=== PATIENT | male | born 1935 | race Caucasian/White ===

== ENCOUNTER 2024-04-28 10:46 | Outpatient (AMB) | payer MEDICARE, SELFPAY ==
--- NOTE | 2024-04-28 10:50 | A.OFFPC_ITS ---
Vital Signs 04/28/24 10:55 Height 5 ft 7 in Weight 168 lb 8 oz BMI 26.4 BP 128/64 Blood Pressure Location Lt brachial Position Sitting Respiration 16 Pulse 76 Pulse Source Pulse Oximeter Temp 97.4 F Temp Source Oral Pulse Oximetry (%) 99 Oxygen Delivery Method Room Air Intake Visit Reasons: NPV Intake Note: patient here for new patient visit Media Promoter Required: No Allergies No Known Allergies Allergy (Verified 04/28/24 10:53) Tobacco use date assessed: 04/28/24 Fall risk assessment: No Falls in past year Last assessed Fall Risk: 04/28/24 Dental Screening Dental Screen Date: 04/28/24 Did you have a dental visit in the last 12 months?: Yes Did you have a dental problem in the last 6 months where you did not have access to dental care?: No Was dental information given to patient?: Patient has dentist HPI HPI Comments History of Present Illness Details This is an 88 year old male presenting to [facility]. His last PCP was at [facility]. He can't prounce her name. He says it's been a year since he was seen. He denies chronic medical conditions aside from arthritis. He doesn't take any medications. He lives with his daughter, Genie, and his , Medina. He is a retired. He used to work for the [employer]. He has arthritis in his hands and knees. He takes Ibuprofen and Tylenol as needed. Patient endorses pressure in his head for at least a year. He has it to some degree every day. It affects his concentration. He feels it diffusely in his head. It is a 10/10 at worst. Denies trauma. He endorses difficulty remembering recent events and details for the past year. He endorses dizziness for the past year. He denies falls. He denies vision changes and eye pain. Denies seizures and blackouts. Denies tremors, paresthesias, weakness, numbness. He says he had a swallow test last week at [facility], but I don't see anything in the records. He is unsure who ordered it, but he says he's been having difficulty with mucus in this throat affecting his ability to swallow. He's has a scaly brown skin lesion on the right forearm for the past year. He requests a referral to dermatology. MMSE-only missed spelling WORLD backwards and the date today and name of the clinic, but he is a new patient. ROS: Constitutional: No unexplained weight loss, fever, chills, fatigue or night sweats. Eyes: No vision changes, blurry vision, double vision, eye pain, eye redness, eye discharge. ENT: He has bilateral hearing aids and chronic tinnitus. Denies sneezing, congestion, runny nose or sore throat. Respiratory: No shortness of breath or cough. Cardiovascular: No chest pain, chest pressure or chest discomfort. No palpitations or pedal edema. Gastrointestinal: No anorexia, nausea, vomiting or diarrhea. No abdominal pain or blood in stool. Genitourinary: No dysuria, hematuria, urinary frequency. Neurologic: No headache, dizziness, syncope, unilateral weakness, ataxia, numbness or tingling in the extremities. Musculoskeletal: see HPI Hematologic/Lymphatics: No bleeding or bruising. No painful lymph nodes. Skin: No rash or itching. Endocrine: No cold or heat intolerance. No polyuria or polydipsia. Psychiatric: No depression or anxiety. No SI/HI. Physical exam: Constitutional: Alert, in no distress. Eyes: Pupils are equal, round and reactive to light. Extraocular muscles intact. Ear, Nose and Throat: Canals clear. TMs normal. Normal nasal mucosa. No nasal discharge. No oral lesions. Neck: Supple, Full range of motion. No lymphadenopathy. No palpable thyroid masses. Respiratory: Clear to auscultation. Cardiovascular: S1 S2 regular. No murmurs. No carotid bruits. Gastrointestinal: Abdomen soft, non-tender, non-distended. Normal bowel sounds. No palpable masses. Neurologic:?Alert and oriented x 3, no focal deficits observed, CN 2-12 intact, [id number] normal, sensation and strength equal and symmetric, reflexes equal and symmetric.? Normal gait.? No pronator drift.? Negative Romberg. Speech is not slurred. He answers questions appropriately. Skin: large, scaly, brown, raised lesion on the right forearm Musculoskeletal: No gross deformities. Normal range of motion. Extremities: Warm and well perfused. No clubbing, cyanosis or edema. 3+ peripheral pulses bilaterally. Psychiatric: He appears nervous. [facility] Medical History (Updated 04/28/24 @ 12:43 by AZRA Cabello) Abnormal EKG Neoplasm of skin Pressure in head Memory impairment Dizziness Surgical History (Updated 04/28/24 @ 11:28 by AZRA Cabello) History of bilateral cataract extraction History of appendectomy History of lumbar surgery Family History (Updated 04/28/24 @ 11:29 by AZRA Cabello) Father Heart disease Social History Housing: House Patient Tobacco Use Status: Never used Tobacco e-Cigarette/Vaping Use: Never Used service: Yes Current occupational status: retired Current occupational exposures/hazards: No Cognitive needs: No Hearing needs: Yes Vision needs: Yes Questionnaire PHQ-9 Over the last 2 weeks, how often have you been bothered by any of the following problems? 1. Little interest or pleasure in doing things: not at all 2. Feeling down, depressed, or hopeless: not at all 3. Trouble falling or staying asleep, or sleeping too much: not at all 4. Feeling tired or having little energy: not at all 5. Poor appetite or overeating: not at all 6. Feeling bad about yourself - or that you are a failure or have let yourself or your family down: not at all 7. Trouble concentrating on things, such as reading the newspaper or watching television: several days 8. Moving or speaking so slowly that other people could have noticed. Or the opposite - being so fidgety or restless that you have been moving around a lot more than usual: not at all 9. Thoughts that you would be better off or of hurting yourself in some way: not at all Total score: 1 99526 - PHQ-9 Billing: Yes Source: Developed by Drs. Yoan Garcia, Ciarra Hicks, Arnulfo Light and colleagues, with an educational collette from [employer]. Thrive Questionnaire Date Thrive assessed: 04/28/24 I am a: Patient What is your living situation today?: I have a steady place to live Within the past 12 months, did the food you bought not last and you didn't have the money to get more?: Never true Within the past 12 months, did you worry whether your food would run out before you got money to buy more?: Never true Do you have trouble paying for medicines?: No Do you have trouble getting transportation to medical appointments?: No Do you have trouble paying your heating and electricity bill?: No Do you have trouble taking care of your child, family member or friend?: No Do you have trouble with day-to-day activities such as bathing, preparing meals, shopping, managing finances, etc.?: No Are you currently unemployed and looking for a job?: No Are you interested in more education?: No Please select the resources that you would like help with: None Currently or been in a relationship where the following occur: No concerns reported THRIVE Score: 0 AUDIT C Alcohol Use Questionnaire (AUDIT-C) 1. How often do you have a drink containing alcohol?: Never Total Score: 0 Score Reviewed/Action Taken: Yes DEMETRIS-7 AMB Questionnaire DEMETRIS-7 Date DEMETRIS - 7 assessed: 04/28/24 Feeling nervous, anxious, or on edge: 0 = Not at all Not being able to stop or control worryin = Not at all Worrying too much about different things: 0 = Not at all Trouble relaxin = Not at all Being so restless that it is hard to sit still: 0 = Not at all Becoming easily annoyed or irritable: 0 = Not at all Feeling afraid as if something awful might happen: 0 = Not at all Total DEMETRIS-7 score (0-4 normal; 5-9 mild; 10-14 moderate; 15-21 severe): 0 Source: Developed by Drs. Yoan Garcia, Ciarra Hicks, Arnulfo Light and colleagues, with an educational collette from [employer]. DEMETRIS-7 Assessment Billing DEMETRIS-7 Assessment Tool: DEMETRIS-7 Assessment 94135 Physical exam (Primary Care) Vital Signs: Last Vital Signs Temp 97.4 F 04/28/24 10:55 Pulse 76 04/28/24 10:55 Resp 16 04/28/24 10:55 BP 128/64 04/28/24 10:55 Pulse Ox 99 04/28/24 10:55 Oxygen Delivery Method Room Air 04/28/24 10:55 BMI result Body Mass Index 26.4 Tobacco/Smoking Status: Tobacco use Status Tobacco use date assessed 04/28/24 04/28/24 10:55 Patient Tobacco Use Status Never used Tobacco 04/28/24 10:55 e-Cigarette/Vaping Use Never Used 04/28/24 10:55 PHQ-9: PHQ-9 Score PHQ-9: Total score 1 04/28/24 11:21 Thrive Assessment: Date of Thrive Assessment Date Thrive assessed 04/28/24 04/28/24 11:04 Currently or been in a relationship where the following occur: No concerns reported Office Procedures EKG Details: ST and T-wave abnormality inferior leads, sinus rhythm with premature supraventricular complexes 52842-[id number], Complete Assessment and Plan Assessment & Plan (1) Pressure in head: Code(s): R51.9 - Headache, unspecified (2) Memory impairment: Code(s): R41.3 - Other amnesia (3) Dizziness: Code(s): R42 - Dizziness and giddiness (4) Neoplasm of skin: Code(s): D49.2 - Neoplasm of unspecified behavior of bone, soft tissue, and skin (5) Abnormal EKG: Code(s): R94.31 - Abnormal electrocardiogram [ECG] [EKG] Plan In summary this is an 88-year-old male who denies significant past medical history other than osteoarthritis who presents with dizziness, head pressure and memory changes over the past year. EKG today abnormal but no acute ischemic changes. No prior available for comparison. Patient has no chest pain or shortness of breath. Reviewed with precepting physician. We will order pharmacologic stress echo for the patient. Advised patient if he does develop cardiac symptoms to call 911 to go to the hospital. Proceed with lab evaluation, urinalysis and culture. Fingerstick glucose ordered but could not be done due to lack of test supplies. Once renal function confirmed we will proceed with order for MRI with and without contrast of the brain. If he has acutely worsening neurological symptoms the patient was advised to go to the emergency department. Refer to dermatology. Follow up in 1 month for neurologic symptoms. Orders: Orders TSH reflex Free T4 Today E66.9 - Obesity, unspecified, R41.3 - Other amnesia, R42 - Dizziness and giddiness, R51.9 - Headache, unspecified Comprehensive Met. Panel Today R41.3 - Other amnesia, R42 - Dizziness and giddiness, R51.9 - Headache, unspecified Vitamin B12 and Folate Today R41.3 - Other amnesia, R42 - Dizziness and giddiness, R51.9 - Headache, unspecified Lyme IgG/IgM w/reflex to WB Today R41.3 - Other amnesia, R42 - Dizziness and giddiness, R51.9 - Headache, unspecified UA w Microscopic Today R41.3 - Other amnesia, R42 - Dizziness and giddiness, R51.9 - Headache, unspecified AMB EKG-In Office Today R42 - Dizziness and giddiness AMB Random Glucose (hemocue) Today R42 - Dizziness and giddiness, Z13.9 - Encounter for screening, unspecified CA Dobutamine Stress Echo Today R94.31 - Abnormal electrocardiogram [ECG] [EKG] Lipid Panel Today R41.3 - Other amnesia, R42 - Dizziness and giddiness, R51.9 - Headache, unspecified Complete Blood Count Auto Diff Today R41.3 - Other amnesia, R42 - Dizziness and giddiness, R51.9 - Headache, unspecified Syphilis Screen Today R41.3 - Other amnesia, R42 - Dizziness and giddiness, R51.9 - Headache, unspecified Urine Culture Today R41.3 - Other amnesia, R42 - Dizziness and giddiness, R51.9 - Headache, unspecified Referrals Dermatology Referral D49.2 - Neoplasm of unspecified behavior of bone, soft tissue, and skin, Z12.83 - Encounter for screening for malignant neoplasm of skin Coding Level of Care Code New Pt Level 5 (83169) Complex EM visit Add On G2211 Diagnoses Pressure in head R51.9 Memory impairment R41.3 Dizziness R42 Neoplasm of skin D49.2 Abnormal EKG R94.31 CPT Codes EKG - CPT: 90282-[id number], Complete ([id number]) Additional Codes DEMETRIS-7 Assessment Billing - DEMETRIS-7 Assessment Tool: DEMETRIS-7 Assessment 32050 ([id number]) Time Spent (min) 75 Comment direct patient care and chart completion
[2024-04-28 10:55] VITALS: BP 128/64; PULSE 76; RESP 16; TEMP 36.3; O2SAT 99; BMI 26.4
== END 2024-04-28 12:40 | disposition home or self-care (01) ==
PROVIDERS: PCP Physician Assistant Medical; Visit Provider Physician Assistant Medical
DX: R51.9 Headache, unspecified (principal); R41.3 Other amnesia; R42 Dizziness and giddiness; D49.2 Neoplasm of unspecified behavior of bone, soft tissue, and skin; R94.31 Abnormal electrocardiogram [ECG] [EKG]
CPT/HCPCS: 93000; 99205; G2211

== ENCOUNTER 2024-04-28 12:57 | Outpatient (REF) | payer MEDICARE, SELFPAY ==
[2024-04-28 14:21] LABS: Appearance Urine Clear; Color Urine Yellow; Glucose Urine UA Negative (Negative); Leukocyte Esterase Urine Trace (Negative); Nitrite Urine Negative (Negative); PH 7.5 (5.0-9.0); UMIC TRIGGER UA YES; Urine Blood Negative (Negative); Urine Ketones Negative (Negative); Urine Protein Negative (Neg-Trace)
[2024-04-28 14:26] LABS: Bacteria Urine None Seen (None Seen); Hyaline Casts Urine 0-2 /LPF (0-2); RBC Urine 0-2 /HPF (0-2); Squamous Epithelial Cell Urine 0-2 /HPF (0-2); WBC Urine 0-5 /HPF (0-5)
== END 2024-04-28 12:58 | disposition home or self-care (01) ==
LOC: HO.WFDLDS 12:57
PROVIDERS: Visit Provider Physician Assistant Medical
DX: R42 Dizziness and giddiness (principal); R41.3 Other amnesia; R51.9 Headache, unspecified
CPT/HCPCS: 81001; 87086; 87088; 87186

== ENCOUNTER 2024-04-29 08:10 | Outpatient (REF) | payer MEDICARE, SELFPAY ==
[2024-04-29 11:06] LABS: MANUAL DIFF FLAG NO
[2024-04-29 11:24] LABS: Basophils Absolute Auto 0.1 X10*3/uL (0.0-0.2); Eosinophils Absolute Auto 0.2 X10*3/uL (0.0-0.4); Eosinophils Percent Auto 2.3 % (0-4); Hematocrit 40.3 % (42.0-52.0); Hemoglobin 13.7 g/dl (14.0-18.0); Imm Gran Abs Auto 0.02 X10*3/uL (0.00-0.03); Imm Gran Pct Auto 0.3 % (0.0-0.4); Lymphocytes Absolute Auto 2.8 X10*3/uL (1.2-4.9); Lymphocytes Percent Auto 35.4 % (20-40); Mean Corpuscular Volume 97.1 fL (80.0-98.0); Mean Platelet Volume 10.8 fL (9.4-12.4); Monocytes Absolute Auto 0.9 X10*3/uL (0.1-1.2); Monocytes Percent Auto 10.9 % (2-11); Neutrophils Absolute Auto 3.9 x10*3/uL (2.0-8.3); Neutrophils Percent Auto 50.1 % (45-73); Platelet Count 206 X10*3/uL (160-400); Red Blood Count 4.15 X10*6/uL (4.60-5.80); Red Cell Distribution Width 13.3 % (11.0-16.0); White Blood Count 7.8 X10*3/uL (4.8-10.8)
[2024-04-29 11:51] LABS: Syphilis Screen Nonreactive (Nonreactive)
[2024-04-29 12:01] LABS: Alanine Aminotransferase 16 U/L (0-40); Alkaline Phosphatase 80 U/L (39-117); Anion Gap 11 (12-20); Aspartate Amino Transferase 23 U/L (5-37); Bilirubin Total 0.7 mg/dL (0.0-1.0); Blood Urea Nitrogen 30 mg/dL (9-16); Calcium 9.9 mg/dL (8.4-10.2); Carbon Dioxide 26 mmol/L (22-29); Chloride 109 mmol/L (96-108); Cholesterol 233 mg/dL (<200); Estimated Glomerular Filt Rate 51; Glucose Random 85 mg/dL (60-115); HDL Cholesterol 58 mg/dL (>40); LDL Cholesterol Calculated 158 mg/dL (<100); Sodium 142 mmol/L (135-145); TSH reflex Free T4 6.73 uIU/mL (0.32-4.0); Total Protein 7.2 g/dL (6.5-8.0); Triglycerides 88 mg/dL (<150)
[2024-04-29 12:06] LABS: Folate 12.5 ng/mL (> or = 4.0); Vitamin B12 495 pg/mL (200-900)
[2024-04-29 14:45] LABS: Free T4 (Free Thyroxine) 0.89 ng/dL (0.71-1.85)
[2024-05-03 01:09] LABS: Lyme Abs Screen <0.90 index
== END 2024-04-29 08:11 | disposition home or self-care (01) ==
LOC: HO.WFDLDS 08:10
PROVIDERS: Visit Provider Physician Assistant Medical
DX: R51.9 Headache, unspecified (principal); E66.9 Obesity, unspecified; R42 Dizziness and giddiness; R41.3 Other amnesia; R94.31 Abnormal electrocardiogram [ECG] [EKG]
CPT/HCPCS: 36415; 80053; 80061; 82607; 82746; 84439; 84443; 85025; 86617; 86618; 86780

== ENCOUNTER 2024-05-30 14:16 | Outpatient (AMB) | payer MEDICARE, SELFPAY ==
--- NOTE | 2024-05-30 14:29 | A.OFFPC_ITS ---
Vital Signs 05/30/24 14:30 Height 5 ft 7 in Weight 166 lb BMI 26.0 BP 116/68 Blood Pressure Location Rt brachial Position Sitting Respiration 16 Pulse 72 Pulse Source Pulse Oximeter Pulse Oximetry (%) 99 Oxygen Delivery Method Room Air Intake Visit Reasons: follow up neuro symptoms Intake Note: Follow up Allergies No Known Allergies Allergy (Verified 05/30/24 14:30) Tobacco use date assessed: 04/28/24 Dental Screening Dental Screen Date: 04/28/24 HPI HPI Comments History of Present Illness Details This is an 88 year old male presenting for follow up. It is our second visit. He lives with his daughter, Genie, and his , [place]. He is a retired. He used to work for the [employer]. He is here to review his lab results. He has arthritis in his hands and knees. He takes Ibuprofen and Tylenol as needed. The patient has an MRI of his brain scheduled 06/20/2024. The patient has a pharmacologic stress test scheduled 07/11/2024. Per chart review, his reported he had the carotid ultrasound study completed, and it was requested, but the study is not in the chart. I sent a message to have this requested again. Patient has mild anemia. 04/29/2024 RBC 4.15, hemoglobin 13.7, hematocrit 40.3. Patient says he does not have a lot of dietary sources of iron. Does not take an iron supplement. Denies rectal bleeding. B12 and folate within normal. He has CKD stage IIIA with creatinine 1.33 and GFR 51. LFTs normal. His LDL cholesterol is elevated at 158. HDL 58 and triglycerides 88. His TSH is mildly elevated at 6.73. He does not have a history of hypothyroidism. Lyme and syphilis screening are negative. Urinalysis normal aside from trace leuks. The patient says that his symptoms are stable. We discussed the following at his initial visit: Patient endorses pressure in his head for at least a year. He has it to some degree every day. It affects his concentration. He feels it diffusely in his head. It is a 10/10 at worst. Denies trauma. He endorses difficulty remembering recent events and details for the past year. He endorses dizziness for the past year. He denies falls. He denies vision changes and eye pain. Denies seizures and blackouts. Denies tremors, paresthesias, weakness, numbness. He says he had a swallow test last week at [facility], but I don't see anything in the records. He is unsure who ordered it, but he says he's been having difficulty with mucus in this throat affecting his ability to swallow. He's has a scaly brown skin lesion on the right forearm for the past year. He requests a referral to dermatology. MMSE-only missed spelling WORLD backwards and the date today and name of the clinic, but he is a new patient. The patient has an appointment with Dermatology scheduled 06/21/2024. ROS: Constitutional: No unexplained weight loss, fever, chills, fatigue or night sweats. Eyes: No vision changes, blurry vision, double vision, eye pain, eye redness, eye discharge. ENT: He has bilateral hearing aids and chronic tinnitus. Denies sneezing, congestion, runny nose or sore throat. Respiratory: No shortness of breath or cough. Cardiovascular: No chest pain, chest pressure or chest discomfort. No palpitations or pedal edema. Gastrointestinal: No anorexia, nausea, vomiting or diarrhea. No abdominal pain or blood in stool. Neurologic: No dizziness, syncope, unilateral weakness, ataxia, numbness or tingling in the extremities. Hematologic/Lymphatics: No bleeding or bruising. No painful lymph nodes. Psychiatric: No depression or anxiety. No SI/HI. Physical exam: Constitutional: Alert, in no distress. Eyes: Pupils are equal, round and reactive to light. Extraocular muscles intact. Neck: Supple, Full range of motion. No lymphadenopathy. No palpable thyroid masses. Respiratory: Clear to auscultation. Cardiovascular: S1 S2 regular. No murmurs Neurologic:?Alert and oriented x 3, no focal deficits observed Extremities: Warm and well perfused. No clubbing, cyanosis or edema. Psychiatric: Cooperative, normal affect. [facility], [facility] Medical History (Updated 05/30/24 @ 15:07 by AZRA Cabello) Mild anemia Elevated TSH CKD stage 3a, GFR 45-59 ml/min Pure hypercholesterolemia Abnormal EKG Neoplasm of skin Pressure in head Memory impairment Dizziness Surgical History (Updated 04/28/24 @ 11:28 by AZRA Cabello) History of bilateral cataract extraction History of appendectomy History of lumbar surgery Family History (Updated 04/28/24 @ 11:29 by AZRA Cabello) Father Heart disease Social History Housing: House Patient Tobacco Use Status: Never used Tobacco e-Cigarette/Vaping Use: Never Used service: Yes Current occupational status: retired Current occupational exposures/hazards: No Cognitive needs: No Hearing needs: Yes Vision needs: Yes Questionnaire Thrive Questionnaire Date Thrive assessed: 04/28/24 DEMETRIS-7 AMB Questionnaire DEMETRIS-7 Date DEMETRIS - 7 assessed: 04/28/24 Source: Developed by Drs. Yoan Garcia, Ciarra Hicks, Arnulfo Light and colleagues, with an educational collette from [employer]. Physical exam (Primary Care) Vital Signs: Last Vital Signs Pulse 72 05/30/24 14:30 Resp 16 05/30/24 14:30 BP 116/68 05/30/24 14:30 Pulse Ox 99 05/30/24 14:30 Oxygen Delivery Method Room Air 05/30/24 14:30 BMI result Body Mass Index 26.0 Tobacco/Smoking Status: Tobacco use Status Tobacco use date assessed 04/28/24 05/30/24 14:30 Patient Tobacco Use Status Never used Tobacco 05/30/24 14:30 e-Cigarette/Vaping Use Never Used 05/30/24 14:30 Thrive Assessment: Date of Thrive Assessment Date Thrive assessed 04/28/24 05/30/24 14:30 Assessment and Plan Assessment & Plan (1) Pressure in head: Code(s): R51.9 - Headache, unspecified (2) Memory impairment: Code(s): R41.3 - Other amnesia (3) Dizziness: Code(s): R42 - Dizziness and giddiness (4) Pure hypercholesterolemia: Code(s): E78.00 - Pure hypercholesterolemia, unspecified (5) CKD stage 3a, GFR 45-59 ml/min: Code(s): N18.31 - Chronic kidney disease, stage 3a (6) Elevated TSH: Code(s): R79.89 - Other specified abnormal findings of blood chemistry (7) Mild anemia: Code(s): D64.9 - Anemia, unspecified (8) Neoplasm of skin: Code(s): D49.2 - Neoplasm of unspecified behavior of bone, soft tissue, and skin (9) Abnormal EKG: Code(s): R94.31 - Abnormal electrocardiogram [ECG] [EKG] Plan In summary this is an 88-year-old male who denies significant past medical history other than osteoarthritis who presented at his initial visit with dizziness, head pressure and memory changes over the past year. Symptoms are stable since that time. His EKG was abnormal but no acute ischemic changes. No prior available for comparison. Patient has no chest pain or shortness of breath. It was reviewed with my precepting physician at that appointment. Pharmacologic stress test is scheduled. He knows to go to the emergency room if he develops chest pain or shortness of breath. Proceed with MRI of the brain. If he has acutely worsening neurological symptoms the patient was advised to go to the emergency department. Request results from carotid ultrasound. Patient and I discussed treatment for hyperlipidemia. He is not sure he wants to start medication at this time. He will work on lifestyle modifications and contact me if he wishes to start a statin. Side effects and administration were reviewed with the patient. TSH is mildly elevated. I do not think this explains his symptoms. We will recheck in 8 weeks. Patient will increase dietary sources of iron. Recheck in 8 weeks. CKD stage IIIA we will be monitored. Avoid nephrotoxic medications. He has an appointment scheduled with Dermatology. Follow up in 3 months in office. Orders: Orders Ferritin 8 Weeks D64.9 - Anemia, unspecified, N18.31 - Chronic kidney disease, stage 3a, R79.89 - Other specified abnormal findings of blood chemistry TSH reflex Free T4 8 Weeks D64.9 - Anemia, unspecified, N18.31 - Chronic kidney disease, stage 3a, R79.89 - Other specified abnormal findings of blood chemistry Complete Blood Count Auto Diff 8 Weeks D64.9 - Anemia, unspecified, N18.31 - Chronic kidney disease, stage 3a, R79.89 - Other specified abnormal findings of blood chemistry IRON PROFILE 8 Weeks D64.9 - Anemia, unspecified, N18.31 - Chronic kidney disease, stage 3a, R79.89 - Other specified abnormal findings of blood chemistry Vitamin B12 8 Weeks D64.9 - Anemia, unspecified, N18.31 - Chronic kidney disease, stage 3a, R79.89 - Other specified abnormal findings of blood chemistry Creatinine 8 Weeks D64.9 - Anemia, unspecified, N18.31 - Chronic kidney disease, stage 3a, R79.89 - Other specified abnormal findings of blood chemistry Coding Level of Care Code Est Pt Level 4 (69562) Complex EM visit Add On G2211 Diagnoses Pressure in head R51.9 Memory impairment R41.3 Dizziness R42 Pure hypercholesterolemia E78.00 CKD stage 3a, GFR 45-59 ml/min N18.31 Elevated TSH R79.89 Mild anemia D64.9 Neoplasm of skin D49.2 Abnormal EKG R94.31
[2024-05-30 14:30] VITALS: BP 116/68; PULSE 72; RESP 16; O2SAT 99; BMI 26.0
== END 2024-05-30 15:12 | disposition home or self-care (01) ==
PROVIDERS: PCP Physician Assistant Medical; Visit Provider Physician Assistant Medical
DX: R51.9 Headache, unspecified (principal); N18.31 Chronic kidney disease, stage 3a; R41.3 Other amnesia; R42 Dizziness and giddiness; E78.00 Pure hypercholesterolemia, unspecified; R79.89 Other specified abnormal findings of blood chemistry; D64.9 Anemia, unspecified; D49.2 Neoplasm of unspecified behavior of bone, soft tissue, and skin; R94.31 Abnormal electrocardiogram [ECG] [EKG]

== ENCOUNTER → 2024-05-30 14:16 | Outpatient (BNVA) | payer MEDICARE, SELFPAY | PROVIDERS: PCP Physician Assistant Medical; Visit Provider Physician Assistant Medical | DX: R51.9 Headache, unspecified (principal); R41.3 Other amnesia; R42 Dizziness and giddiness; E78.00 Pure hypercholesterolemia, unspecified; N18.31 Chronic kidney disease, stage 3a; D63.1 Anemia in chronic kidney disease; D49.2 Neoplasm of unspecified behavior of bone, soft tissue, and skin; R94.31 Abnormal electrocardiogram [ECG] [EKG]; R79.89 Other specified abnormal findings of blood chemistry | CPT/HCPCS: 99212 ==

== ENCOUNTER 2024-07-15 12:51 | Outpatient (REF) | payer MEDICARE, SELFPAY ==
[2024-07-15 14:12] LABS: MANUAL DIFF FLAG NO
[2024-07-15 14:24] LABS: Appearance Urine Clear; Color Urine Yellow; Glucose Urine UA Negative (Negative); Leukocyte Esterase Urine Negative (Negative); Nitrite Urine Negative (Negative); Urine Blood Negative (Negative); Urine Ketones Negative (Negative); Urine Protein Negative (Neg-Trace)
[2024-07-15 14:26] LABS: Basophils Absolute Auto 0.1 X10*3/uL (0.0-0.2); Basophils Percent Auto 1.1 % (0-2); Eosinophils Absolute Auto 0.5 X10*3/uL (0.0-0.4); Eosinophils Percent Auto 5.3 % (0-4); Hemoglobin 13.8 g/dl (14.0-18.0); Imm Gran Abs Auto 0.02 X10*3/uL (0.00-0.03); Imm Gran Pct Auto 0.2 % (0.0-0.4); Lymphocytes Absolute Auto 2.2 X10*3/uL (1.2-4.9); Lymphocytes Percent Auto 22.8 % (20-40); Mean Corpuscular HGB Conc 34.5 g/dl (31.0-36.0); Mean Corpuscular Hemoglobin 33.2 pg (27.0-33.0); Mean Corpuscular Volume 96.2 fL (80.0-98.0); Mean Platelet Volume 10.6 fL (9.4-12.4); Monocytes Absolute Auto 0.9 X10*3/uL (0.1-1.2); Neutrophils Absolute Auto 5.8 x10*3/uL (2.0-8.3); Neutrophils Percent Auto 61.6 % (45-73); Platelet Count 227 X10*3/uL (160-400); Red Blood Count 4.16 X10*6/uL (4.60-5.80); Red Cell Distribution Width 12.7 % (11.0-16.0); White Blood Count 9.4 X10*3/uL (4.8-10.8)
[2024-07-15 14:29] LABS: Bacteria Urine None Seen (None Seen); Hyaline Casts Urine 0-2 /LPF (0-2); RBC Urine 0-2 /HPF (0-2); Squamous Epithelial Cell Urine 0-2 /HPF (0-2); WBC Urine 0-5 /HPF (0-5)
[2024-07-15 15:48] LABS: Estimated Glomerular Filt Rate 53; Iron 41 mcg/dL (45-160); Percent Iron Saturation 19 % (15-50); Total Iron Binding Capacity 220 mcg/dL (228-428); Unsaturated Iron Binding 179 ug/dL
[2024-07-15 15:59] LABS: Ferritin 292 ng/mL (20-250); TSH reflex Free T4 4.41 uIU/mL (0.32-4.0)
[2024-07-15 16:04] LABS: Vitamin B12 1468 pg/mL (200-900)
== END 2024-07-15 12:52 | disposition home or self-care (01) ==
LOC: HO.WFDLDS 12:51
PROVIDERS: Visit Provider Physician Assistant Medical
DX: D64.9 Anemia, unspecified (principal); R79.89 Other specified abnormal findings of blood chemistry; N18.31 Chronic kidney disease, stage 3a; R39.9 Unspecified symptoms and signs involving the genitourinary system
CPT/HCPCS: 36415; 81001; 82565; 82607; 82728; 83540; 84439; 84443; 85025; 87086

== ENCOUNTER 2024-09-01 14:54 | Outpatient (REF) | payer MEDICARE, SELFPAY ==
--- OUTSIDE RECORDS SUMMARY | 2024-09-01 14:57 | XMS_ITS | Data Portability ---
Author Organization [place] - [facility], Allergy Address [address] [address] Care Team Providers Care Environmental Tech Name Role Phone DELANEYJAYA ALVARADO Primary Care Provider NBA DE LA CRUZ Primary Care Provider Assessment Encounter Date Assessment Date Assessment LastModified by Organization Details LastModified Time 04/11/2024 04/11/2024 88-year-old male presents for evaluation of swallowing difficulty. Exam shows mild fasciculation of the tongue and soft palate which could be indicative of a neurodegenerative disorder. For this reason I have recommended referral to neurology for further evaluation. In the meantime I would like to order a modified barium swallow to ensure there is no aspiration. Pending these results could consider CT scan of the neck. All questions were answered. [email or web address] Not available 04/11/2024 13:46:39 Plan of Treatment Reminders Order Date Submit Date Provider Last Modified By Organization Details Last Modified Time Details Appointments None recorded. Lab None recorded. Referral neurologi st referral - Referral for tongue fascicula tions r/s neurodege nerative disorder. Thank you. 2023 024 [email or web address] [facility] Neurology Scheduling, [address] [place], [address], 4 08:36:33 Procedures None recorded. Surgeries None recorded. Imaging [place], modified barium swallow study 2023 024 [email or web address] [facility] Radiology & Imaging, 100 [facility], [address], [place], [address], 4 10:29:28 Medication Orders None recorded. Patient TargetsNo targets recorded. Patient InstructionsNo instructions recorded. Reason for Referral Neurologist Referral for Dys phagia Referral for tongue fasciculations r/s neurodegenerative disorder. Thank you. Referring Physician: Sita Lopez, Otolaryngology, Encounter Date: 04/11/2024 Results Created Date Observation Date Name Description Value Unit Range Abnormal Flag Note LastModifiedBy Organization Detail LastModifiedTime 04/28/2004/19/2020 imagi ng/di agnos tic resul t No observ ation record ed. [email or web address] Not Available 03:17:39 04/28/20 24 04/19/2020 imagi ng/di agnos tic resul t No observ ation record ed. [email or web address] Not Available 03:17:46 04/28/20 24 06/06/2020 imagi ng/di agnos tic resul t No observ ation record ed. [email or web address] Not Available 03:18:02 04/28/20 24 06/10/2023 imagi ng/di agnos tic resul t No observ ation record ed. [email or web address] Not Available 03:18:26 04/28/20 24 06/10/2023 imagi ng/di agnos tic resul t No observ ation record ed. [email or web address] Not Available 03:18:37 04/28/20 24 08/26/2021 imagi ng/di agnos tic resul t No observ ation record ed. [email or web address] Not Available 03:19:02 04/28/20 24 08/26/2021 imagi ng/di agnos tic resul t No observ ation record ed. [email or web address] Not Available 03:19:05 04/28/20 24 09/02/2021 imagi ng/di agnos tic resul t No observ ation record ed. [email or web address] Not Available 03:20:00 04/28/20 24 09/21/2023 audio gram No observ ation record ed. [email or web address] Not Available 03:20:01 04/28/20 24 12/01/2023 audio gram No observ ation record ed. [email or web address] Not Available 03:20:18 04/28/20 24 12/16/2023 audio gram No observ ation record ed. [email or web address] Not Available 03:20:25 04/28/20 24 12/29/2023 audio gram No observ ation record ed. [email or web address] Not Available 03:20:26 04/28/20 24 07/14/2023 audio gram No observ ation record ed. [email or web address] Not Available 03:20:37 Result Notes None recorded. Problems Name Problem SNOMED Code Status Onset Date Resolution Date Notes Provider Name and Address Organization Details Recorded Time Gastroeso phageal reflux disease without esophagit is 471651211 Active 2019 Gastro-es ophageal reflux disease without esophagit is; Note: Date Diagnosed : 04/28/2016 1:43 PM (K21.9) Not Available [facility] 4 02:42:14 Sensorine ural hearing loss of bilateral ears 368368372 Active 2020 Sensorine ural hearing loss, bilateral ; Note: Date Diagnosed : 1 1:48 PM (H90.3) Note: Date Diagnosed : 1 1:48 PM (H90.3) LEONA MCCARTNEY, [address] [address], [place], [address] , [facility] - [facility] 4 14:43:39 Bilateral tinnitus 75932742317 02 Active 2022 Tinnitus, bilateral ; Note: Date Diagnosed : 06/10/2023 11:13 AM (H93.13) Not Available [facility] 4 02:42:10 Dysphagia 21493499 Active 2019 Other dysphagia ; Note: Date Diagnosed : 0 10:25 AM (R13.19) Not Available [facility] 4 02:42:15 Itching of skin 100781744 Active 2023 Other pruritus; Note: Date Diagnosed : 10/12/2023 12:09 PM (L29.8) Not Available [facility] 4 02:42:11 Sensorine ural hearing loss of bilateral ears 976301066 Active 2020 Sensorine ural hearing loss, bilateral ; Note: Date Diagnosed : 1 1:48 PM (H90.3) Not Available [facility] 4 02:42:13 Problem Notes None recorded. Procedures Surgical History Date Name Laterality Status Provider Name and Address Organization Details Recorded Time hernia repair completed Nai Becker [facility] 04/11/2024 13:21:17 Imaging Results Imaging Date Name Status LastModified by [facility] [place] Details LastModified Time 04/19/2020 imaging/diagno stic result completed Information not available 04/28/2024 03:17:39 04/19/2020 imaging/diagno stic result completed Information not available 04/28/2024 03:17:46 06/06/2020 imaging/diagno stic result completed Information not available 04/28/2024 03:18:02 06/10/2023 imaging/diagno stic result completed Information not available 04/28/2024 03:18:26 06/10/2023 imaging/diagno stic result completed Information not available 04/28/2024 03:18:37 08/26/2021 imaging/diagno stic result completed Information not available 04/28/2024 03:19:02 08/26/2021 imaging/diagno stic result completed Information not available 04/28/2024 03:19:05 09/02/2021 imaging/diagno stic result completed Information not available 04/28/2024 03:20:00 09/21/2023 audiogram completed Information not available 04/28/2024 03:20:01 12/01/2023 audiogram completed Information not available 04/28/2024 03:20:18 12/16/2023 audiogram completed Information not available 04/28/2024 03:20:25 12/29/2023 audiogram completed Information not available 04/28/2024 03:20:26 07/14/2023 audiogram completed Information not available 04/28/2024 03:20:37 Procedure Notes None recorded. Medical Equipment None Reported. Allergies No known drug allergies Medications Name Sig Start Date Stop Date Status Note LastModified by Organization Details LastModified Time multivita min tablet active Medicati on ID: 350730 B rand Name: multivit choi Sen d Method: E-Prescr ibed Sub s Allowed: subs OK Medic ationGen ericName : multivit choi Not Available Not Available Not Available amoxicill in 500 mg tablet TAKE 2 TABLETS BY MOUTH NOW THEN TAKE 1 TABLET EVERY 8 HOURS UNTIL FINSHED 04/11 completed Not Available Not Available Not Available flaxseed oil 1,000 mg capsule active Medicati on ID: [id number] B rand Name: flaxseed oil Send Method: E-Prescr ibed Sub s Allowed: subs OK Medic ationGen ericName : flaxseed oil Not Available Not Available Not Available Vitamin D3 10 mcg (400 unit) tablet active Medicati on ID: 590459 B rand Name: Vitamin D3 Send Method: E-Prescr ibed Sub s Allowed: subs OK Medic ationGen ericName : Vitamin D3 Not Available Not Available Not Available saw palmetto 160 mg capsule active Medicati on ID: 351317 B rand Name: saw palmetto Send Method: E-Prescr ibed Sub s Allowed: subs OK Medic ationGen ericName : saw palmetto Not Available Not Available Not Available ibuprofen 200 mg tablet active Medicati on ID: 343117 B rand Name: ibuprofe n Send Method: E-Prescr ibed Sub s Allowed: subs OK Medic ationGen ericName : ibuprofe n Not Available Not Available Not Available omeprazol e 20 mg capsule,d elayed release 1 capsule by mouth 2019 active Medicati on ID: [id number] D uration Value: 30 Brand Name: omeprazo le Send Method: E-Prescr ibed Sub s Allowed: subs OK Medic ationGen ericName : omeprazo le Not Available Not Available Not Available ketoconaz ole 2 % topical cream APPLY TOPICALL Y TO THE AFFECTED AREA TWICE DAILY 04/11 completed Not Available Not Available Not Available amoxicill in 875 mg-potass ium clavulana te 125 mg tablet TAKE 1 TABLET BY MOUTH TWICE DAILY 04/11 completed Not Available Not Available Not Available neomycin 3.5 mg/g-poly myxin B 10,000 unit/g-de xameth 0.1 % eye oint APPLY 1CM RIBBON TO UPPER LEFT EYELID OF EYE TWICE DAILY FOR 1 WEEK 04/11 completed Not Available Not Available Not Available Calcium-5 00 500 mg (as calcium carbonate 1,250 mg) chewable tablet active Medicati on ID: 681920 B rand Name: Calcium 500 Send Method: E-Prescr ibed Sub s Allowed: subs OK Medic ationGen ericName : Calcium 500 Not Available Not Available Not Available fluocinol one acetonide oil 0.01 % ear drops INSTILL 2 DROPS IN EACH EAR TWICE WEEKLY FOR ITCHING 04/11 completed Not Available Not Available Not Available Paxlovid 150 mg-100 mg tablets in a dose pack (Renal Dose) TAKE 2 TABLETS BY MOUTH TWICE DAILY DIRECTED PER PACKAGE INSTRUCT IONS 04/11 completed Not Available Not Available Not Available Vitals None Recorded Social History None recorded. Functional Status None recorded. Mental Status None recorded. Family History Nothing Reported. Medical History Condition Response GERD/Reflux Y Past Encounters Encounter ID Performer Location Encounter Start Date Encounter Closed Date Diagnosis/Indication Diagnosis SNOMED-CT Code Diagnosis ICD10 Code [id number] [facility] [address] [place] [id number] 02/02/2024 14:22:54 02/02/2024 14:37:20 Sensorineural hearing loss of bilateral ears [id number] H90.3 [id number] PABLO BROWN MD [facility] [address] [address] 04/11/2024 13:04:59 04/11/2024 13:35:59 Dysphagia 53867598 R13.10 Health Concerns Section Related Observation LastModified by Organization Detai ls LastModified Time None Recorded Concern Status LastModified by Organization Details LastModified Time None Recorded Advance Directives Directive None Recorded Payers Encounter Date Sequence Insurance Name Policy Number Policy Oliveira Covered Member ID Oliveira Member ID Guarantor Name 02/02/2024 1 [facility] [id number] Alexx Alcantara [id number] Alexx Alcantara 04/11/2024 1 [facility] [id number] Alexx Alcantara [id number] Alexx Alcantara Notes Date Note Type Note Provider Name and Address Organization Details Recorded Time 04/11/2024 text/html 88-year-old male presents for swallowing evaluation. He states over the last 6 months to a year he has been having difficulty with swallowing. It has gotten slowly worse over time. Mostly with solid foods he feels like he has to work very hard to get it to go down. No choking but feels like he is on the edge of choking occasionally. Swallowing is not painful and he does not have any regurgitation. No voice changes or weight loss. No tobacco history. PABLO BROWN MD [address] [place] [address], [id number], [place] - [facility] 04/11/2024 16:52:57
--- OUTSIDE RECORDS SUMMARY | 2024-09-01 14:57 | XMS_ITS | Continuity of Care Document ---
Author Organization [place] Address [address] [place] [address]- Care Team Providers Care Head End Desizing Machine Operator Name Role Phone Not on Staff, PCP Primary Care Physician Unavail able Encounter [facility] [place] Date(s): 05/23/24 - 08/18/[address] [id number] Attending Physician: Dia Finn MD Admitting Physician: Dia Finn MD Referring Physician: Dia Finn MD Encounter Type: Pre-Outpt Allergies, Adverse Reactions, Alerts Substance Criticality Severity Reaction Reaction Severity Status statins Active Medications aspirin 81 mg oral tablet 1 tablet = 81 mg, By Mouth, Daily, 0 Refills, Maintenance, 05/07/18 9:26:25 AM EDT Start Date: 05/07/18 Status: Ordered Repeat number: 1 No Home Meds Maintenance, 10/27/17 11:16:01 AM EST, Compound Start Date: 10/27/17 Status: Ordered Repeat number: 1 Problem List Condition Confirmation Course Effective Dates Status Health St atus Informant COVID-19 1 Confirmed 10/29/23 Active 1Problem added by Discern Expert Patient Care team information Care Team Personnel Name: Not on Staff, PCP Position: S Physician (General Medicine) Member Role: PCP Care Team Related Persons Name: SAMANTHA TIRADO Insurance Providers Guarantor name: WOJCIECH TIRADO Health Plan Information #: 1 Payer: [facility] [employer] Member Number: [id number] Policy Number: NA Group Number: [id number] Health Plan Information #: 2 Payer: [facility] Member Number: [id number] Policy Number: NA Group Number: NA
[2024-09-01 18:17] LABS: Appearance Urine Clear; Color Urine Yellow; Glucose Urine UA Negative (Negative); Leukocyte Esterase Urine Negative (Negative); Nitrite Urine Negative (Negative); PH 5.5 (5.0-9.0); Urine Blood Negative (Negative); Urine Ketones Negative (Negative); Urine Protein Negative (Neg-Trace)
[2024-09-01 18:22] LABS: Bacteria Urine None Seen (None Seen); Hyaline Casts Urine 0-2 /LPF (0-2); RBC Urine 0-2 /HPF (0-2); Squamous Epithelial Cell Urine 0-2 /HPF (0-2); WBC Urine 0-5 /HPF (0-5)
== END 2024-09-01 14:55 | disposition home or self-care (01) ==
LOC: HO.WFDLDS 14:54
PROVIDERS: Visit Provider Physician Assistant Medical
DX: R39.9 Unspecified symptoms and signs involving the genitourinary system (principal)
CPT/HCPCS: 81001; 87086